=== PATIENT | male | born 1970 | race Two or more races ===

== ENCOUNTER 2020-06-13 22:20 | Emergency (ER) | payer OTHER ==
[2020-06-13 22:39] VITALS: BMI 25.0
[2020-06-14] MEDS ORDERED: ACETAMINOPHEN 325 MG TABLET (FP) PO ONE ×2 (00:47→06:12)
[2020-06-14] MEDS ORDERED: chlordiazePOXIDE HCL 25 MG CAPSULE PO ONE (06:12)
[2020-06-14] MEDS ORDERED: ACETAMINOPHEN 325 MG TABLET (FP) ONE (06:16)
[2020-06-14] MEDS ORDERED: chlordiazePOXIDE HCL 25 MG CAPSULE ONE (06:17)
[2020-06-14 07:08] VITALS: BP 114/68; PULSE 95; TEMP 98.3
== END 2020-06-14 08:24 | disposition home or self-care (01) ==
LOC: JER 22:20
DX: F10.10 Alcohol abuse, uncomplicated (principal); S62.92XA Unspecified fracture of left hand, initial encounter for closed fracture
CPT/HCPCS: 73130-TC-LT-FY; 99284-25

== ENCOUNTER 2020-06-14 10:01 | Inpatient (IN) | payer OTHER ==
[2020-06-14 10:49] VITALS: BMI 22.9
[2020-06-14] MEDS ORDERED: chlordiazePOXIDE HCL 25 MG CAPSULE PO SCH (11:00)
[2020-06-14] MEDS ORDERED: chlordiazePOXIDE HCL 25 MG CAPSULE ONE (11:22)
[2020-06-14] MEDS ORDERED: ONDANSETRON *ODT* 4 MG TABLET SL PRN (11:36)
[2020-06-14] MEDS ORDERED: MAGNESIUM CITRATE 300 ML BOTTLE PO PRN (11:36)
[2020-06-14] MEDS ORDERED: MAG HYDROX/AL HYDROX/SIMETH 30 ML UNIT-DOSE CUP PO PRN (11:36)
[2020-06-14] MEDS ORDERED: NICOTINE POLACRILEX 2 MG GUM BUC PRN (11:36)
[2020-06-14] MEDS ORDERED: MAGNESIUM HYDROX 2400MG/30ML ORAL SUSPENSION 30 ML CUP PO PRN (11:36)
[2020-06-14] MEDS ORDERED: ACETAMINOPHEN 325 MG TABLET (FP) PO PRN (11:36)
[2020-06-14] MEDS ORDERED: MENTHOL/PHENOL 1 EACH UD MM PRN (11:36)
[2020-06-14] MEDS ORDERED: chlordiazePOXIDE HCL 25 MG CAPSULE PO PRN (11:36)
[2020-06-14] MEDS ORDERED: BISMUTH SUBSALICYLATE 262 MG/15 ML BTL PO PRN (11:36)
[2020-06-14] MEDS ORDERED: ALBUTEROL SO4 HFA INHALER IH PRN (11:38)
[2020-06-14] MEDS ORDERED: METHADONE HCL 10 MG TABLET PO SCH (13:00)
[2020-06-14] MEDS: IBUPROFEN 400 MG TABLET (FP) PO PRN ×2 (13:33→19:45)
[2020-06-14] MEDS: PRENATAL VITAMINS W/ FOLIC ACID TABLET (FP) PO SCH (13:33)
[2020-06-14] MEDS: METHADONE HCL 40 MG DISPERSABLE TABLET PO SCH (13:33)
[2020-06-14] MEDS: hydrOXYzine PAMOATE 25 MG CAPSULE (FP) PO SCH ×3 (13:33→23:49)
[2020-06-14] MEDS: METHOCARBAMOL 500 MG TABLET PO PRN ×2 (13:33→19:45)
[2020-06-14] MEDS ORDERED: MELATONIN 5 MG TABLETS PO PRN (14:13)
[2020-06-14 14:28] LABS: HEMATOCRIT 38.6 % (35.4-49); HEMOGLOBIN 13.2 GM/dL (11.7-16.9); MCHC 34.2 g/dl (32.0-35.9); MEAN CELL VOLUME 105.1 fl (80-96); MEAN PLT VOLUME 9.5 fl (7.5-11.1); PLATELET COUNT 174 K/MM3 (134-434); RBC 3.67 M/mm3 (4.00-5.60); WHITE BLOOD COUNT 17.2 K/mm3 (4.0-10.0)
[2020-06-14 14:32] LABS: POTASSIUM 3.5 mmol/L (3.5-5.1)
[2020-06-14 14:41] LABS: CALCIUM 8.7 mg/dL (8.5-10.1)
[2020-06-14 14:42] LABS: ALBUMIN 3.7 g/dl (3.4-5.0)
[2020-06-14 14:44] LABS: CREATININE 0.8 mg/dL (0.55-1.3)
[2020-06-14 14:46] LABS: BILIRUBIN,TOTAL 0.7 mg/dL (0.2-1); TOT PROT 8.1 g/dl (6.4-8.2)
[2020-06-14] MEDS: ACETAMINOPHEN 325 MG TABLET (FP) PO PRN (14:48)
[2020-06-14] MEDS ORDERED: LORazepam 1 MG TABLET PO PRN (15:23)
[2020-06-14] MEDS: LORazepam 2 MG TABLET PO SCH ×2 (17:32→23:49)
[2020-06-14] MEDS ORDERED: MELATONIN 5 MG TABLETS PO SCH (22:00)
[2020-06-14] MEDS: THIAMINE HCL 100 MG TABLET (FP) PO SCH (23:49)
[2020-06-15] MEDS: METHADONE HCL 40 MG DISPERSABLE TABLET PO SCH (05:36)
[2020-06-15] MEDS: LORazepam 2 MG TABLET PO SCH ×4 (05:36→23:24)
[2020-06-15] MEDS: hydrOXYzine PAMOATE 25 MG CAPSULE (FP) PO SCH ×5 (05:36→23:24)
[2020-06-15] MEDS: ACETAMINOPHEN 325 MG TABLET (FP) PO PRN (05:38)
[2020-06-15] MEDS: PRENATAL VITAMINS W/ FOLIC ACID TABLET (FP) PO SCH (11:33)
[2020-06-15] MEDS: NICOTINE 7 MG/24 HOURS TOPICAL PATCH TD SCH (11:34)
[2020-06-15 13:04] LABS: HEMATOCRIT 37.6 % (35.4-49); HEMOGLOBIN 12.9 GM/dL (11.7-16.9); MCH 36.2 pg (25.7-33.7); MCHC 34.2 g/dl (32.0-35.9); MEAN PLT VOLUME 10.3 fl (7.5-11.1); PLATELET COUNT 129 K/MM3 (134-434); POTASSIUM 3.9 mmol/L (3.5-5.1); RBC 3.55 M/mm3 (4.00-5.60); RDW 15.2 % (11.9-15.9); WHITE BLOOD COUNT 13.1 K/mm3 (4.0-10.0)
[2020-06-15 13:05] LABS: INR 1.05 (0.83-1.09); PROTHROMBIN TIME (PATIENT) 12.9 SEC (9.7-13.0)
[2020-06-15 13:08] LABS: ALBUMIN 3.6 g/dl (3.4-5.0); BLOOD UREA NITROGEN 28.5 mg/dL (7-18)
[2020-06-15 13:12] LABS: BILIRUBIN,TOTAL 1.6 mg/dL (0.2-1); CREATININE 2.1 mg/dL (0.55-1.3)
[2020-06-15 13:18] LABS: CALCIUM 8.5 mg/dL (8.5-10.1)
[2020-06-15] MEDS: TOLNAFTATE 1% CREAM 15 GM TUBE TP SCH ×2 (15:29→23:24)
[2020-06-15] MEDS: THIAMINE HCL 100 MG TABLET (FP) PO SCH (23:24)
[2020-06-16] MEDS ORDERED: chlordiazePOXIDE HCL 25 MG CAPSULE PO SCH (05:00)
[2020-06-16] MEDS: METHADONE HCL 40 MG DISPERSABLE TABLET PO SCH (05:24)
[2020-06-16] MEDS: LORazepam 1 MG TABLET PO SCH ×4 (05:24→22:21)
[2020-06-16] MEDS: hydrOXYzine PAMOATE 25 MG CAPSULE (FP) PO SCH ×5 (05:24→22:21)
[2020-06-16] MEDS: ACETAMINOPHEN 325 MG TABLET (FP) PO PRN (05:26)
[2020-06-16] MEDS ORDERED: MASKS NR ONE (07:41)
[2020-06-16 09:50] LABS: BASO % 0.8 % (0-2.0); HEMATOCRIT 39.8 % (35.4-49); HEMOGLOBIN 13.2 GM/dL (11.7-16.9); LYMPH % 13.4 % (8-40); MCH 35.2 pg (25.7-33.7); MCHC 33.1 g/dl (32.0-35.9); MEAN CELL VOLUME 106.4 fl (80-96); MEAN PLT VOLUME 10.9 fl (7.5-11.1); NEUT % 70.8 % (42.8-82.8); PLATELET COUNT 122 K/MM3 (134-434); RBC 3.74 M/mm3 (4.00-5.60); RDW 14.9 % (11.9-15.9); WHITE BLOOD COUNT 11.8 K/mm3 (4.0-10.0)
[2020-06-16 09:53] LABS: POTASSIUM 3.6 mmol/L (3.5-5.1)
[2020-06-16 10:00] LABS: INR 1.01 (0.83-1.09); PROTHROMBIN TIME (PATIENT) 12.2 SEC (9.7-13.0)
[2020-06-16 10:12] LABS: BILIRUBIN,TOTAL 0.8 mg/dL (0.2-1)
[2020-06-16] MEDS: NICOTINE 7 MG/24 HOURS TOPICAL PATCH TD SCH (10:14)
[2020-06-16] MEDS: TOLNAFTATE 1% CREAM 15 GM TUBE TP SCH ×2 (10:14→22:21)
[2020-06-16] MEDS: METHOCARBAMOL 500 MG TABLET PO PRN ×2 (10:17→18:01)
[2020-06-16 10:26] LABS: CALCIUM 9.4 mg/dL (8.5-10.1)
[2020-06-16 10:27] LABS: BLOOD UREA NITROGEN 46.8 mg/dL (7-18)
[2020-06-16 10:30] LABS: CREATININE 3.1 mg/dL (0.55-1.3)
[2020-06-16 10:31] LABS: TOT PROT 8.9 g/dl (6.4-8.2)
[2020-06-16] MEDS: PRENATAL VITAMINS W/ FOLIC ACID TABLET (FP) PO SCH (11:08)
[2020-06-16 12:56] LABS: ANISOCYTOSIS 0; MACROCYTOSIS 1+; PLATELET ESTIMATE DECREASED; TARGET CELLS 1+; TEAR DROP CELLS 1+
[2020-06-16] MEDS ORDERED: LACTULOSE 20 GM/30 ML UDC (FOR ORAL USE ONLY) PO ONE (14:30)
[2020-06-16] MEDS: LACTULOSE 20 GM/30 ML UDC (FOR ORAL USE ONLY) PO SCH ×2 (18:02→22:21)
[2020-06-16] MEDS: THIAMINE HCL 100 MG TABLET (FP) PO SCH (22:21)
[2020-06-17] MEDS ORDERED: chlordiazePOXIDE HCL 10 MG CAPSULE PO PRN
[2020-06-17] MEDS ORDERED: LORazepam 0.5 MG TABLET PO PRN
[2020-06-17] MEDS ORDERED: chlordiazePOXIDE HCL 10 MG CAPSULE PO SCH (05:00)
[2020-06-17] MEDS: hydrOXYzine PAMOATE 25 MG CAPSULE (FP) PO SCH ×5 (05:37→23:12)
[2020-06-17] MEDS: LORazepam 0.5 MG TABLET PO SCH ×4 (05:37→23:12)
[2020-06-17] MEDS: METHADONE HCL 40 MG DISPERSABLE TABLET PO SCH (05:38)
[2020-06-17] MEDS: PRENATAL VITAMINS W/ FOLIC ACID TABLET (FP) PO SCH (10:33)
[2020-06-17] MEDS: NICOTINE 7 MG/24 HOURS TOPICAL PATCH TD SCH (10:33)
[2020-06-17] MEDS: TOLNAFTATE 1% CREAM 15 GM TUBE TP SCH ×2 (10:33→23:12)
[2020-06-17] MEDS: LACTULOSE 20 GM/30 ML UDC (FOR ORAL USE ONLY) PO SCH ×4 (10:34→23:12)
[2020-06-17 11:23] LABS: POTASSIUM 3.5 mmol/L (3.5-5.1)
[2020-06-17 11:32] LABS: CALCIUM 9.5 mg/dL (8.5-10.1)
[2020-06-17 11:33] LABS: ALBUMIN 4.3 g/dl (3.4-5.0); BLOOD UREA NITROGEN 62.4 mg/dL (7-18)
[2020-06-17 11:36] LABS: CREATININE 4.7 mg/dL (0.55-1.3)
[2020-06-17 11:37] LABS: TOT PROT 9.3 g/dl (6.4-8.2)
[2020-06-17 11:38] LABS: BILIRUBIN,TOTAL 0.8 mg/dL (0.2-1)
[2020-06-17] MEDS: AMMONIUM LACTATE 12% LOTION 225 GM BOTTLE TP SCH ×2 (13:39→23:12)
[2020-06-17 17:25] VITALS: BP 134/91; PULSE 136; TEMP 99.1
[2020-06-17] MEDS: THIAMINE HCL 100 MG TABLET (FP) PO SCH (23:12)
[2020-06-18] MEDS ORDERED: chlordiazePOXIDE HCL 10 MG CAPSULE PO SCH (05:00)
[2020-06-18] MEDS ORDERED: LORazepam 0.5 MG TABLET PO ONE (05:00)
[2020-06-19] MEDS ORDERED: chlordiazePOXIDE HCL 10 MG CAPSULE PO ONE (05:00)
== END 2020-06-17 18:04 | disposition short-term general hospital (02) | DRG 773 ==
LOC: YASAS 10:01 → Y6N 12:08
PROVIDERS: ADMIT Allergy & Immunology; ATTEND Allergy & Immunology
PROC: HZ2ZZZZ Detoxification Services for Substance Abuse Treatment (ICD-10-PCS; principal; 2020-06-14)
DX: F10.230 Alcohol dependence with withdrawal, uncomplicated (principal); F11.20 Opioid dependence, uncomplicated; F17.210 Nicotine dependence, cigarettes, uncomplicated; F10.280 Alcohol dependence with alcohol-induced anxiety disorder; F10.282 Alcohol dependence with alcohol-induced sleep disorder; F10.24 Alcohol dependence with alcohol-induced mood disorder; F41.9 Anxiety disorder, unspecified; E72.20 Disorder of urea cycle metabolism, unspecified; J45.909 Unspecified asthma, uncomplicated; R74.8 Abnormal levels of other serum enzymes; R79.89 Other specified abnormal findings of blood chemistry; Z62.810 Personal history of physical and sexual abuse in childhood; Z87.81 Personal history of (healed) traumatic fracture
CPT/HCPCS: 36415; 80053; 82140; 85025; 85027; 85610; 86780; 93005; 93010; C9803; U0003

== ENCOUNTER 2020-06-17 18:14 | Inpatient (IN) | payer OTHER ==
[2020-06-17 18:25] VITALS: BMI 24.4
[2020-06-17] MEDS ORDERED: SODIUM CHLORIDE 0.9% 500 ML INFUS.BAG IV ONE ×3 (19:19→22:10)
[2020-06-17] MEDS ORDERED: LACTULOSE 20 GM/30 ML UDC (FOR ORAL USE ONLY) PO ONE (19:27)
[2020-06-17] MEDS ORDERED: THIAMINE HCL 100 MG TABLET (FP) PO ONE (19:38)
[2020-06-17] MEDS ORDERED: FOLIC ACID 1 MG TABLET (FP) PO ONE (20:07)
[2020-06-17] MEDS ORDERED: THIAMINE HCL 100 MG TABLET (FP) ONE (20:17)
[2020-06-17] MEDS ORDERED: FOLIC ACID 1 MG TABLET (FP) ONE (20:17)
[2020-06-17] MEDS ORDERED: LACTULOSE 20 GM/30 ML UDC (FOR ORAL USE ONLY) ONE (20:17)
[2020-06-17 20:26] LABS: BASO % 0.5 % (0-2.0); EOS % 1.1 % (0-4.5); HEMATOCRIT 38.5 % (35.4-49); HEMOGLOBIN 13.2 GM/dL (11.7-16.9); LYMPH % 8.2 % (8-40); MCH 35.9 pg (25.7-33.7); MCHC 34.3 g/dl (32.0-35.9); MEAN CELL VOLUME 104.7 fl (80-96); MEAN PLT VOLUME 9.7 fl (7.5-11.1); MONO % 14.3 % (3.8-10.2); NEUT % 75.9 % (42.8-82.8); PLATELET COUNT 154 K/MM3 (134-434); RBC 3.68 M/mm3 (4.00-5.60); RDW 14.4 % (11.9-15.9); WHITE BLOOD COUNT 11.8 K/mm3 (4.0-10.0)
[2020-06-17 20:33] LABS: INR 0.99 (0.83-1.09); PROTHROMBIN TIME (PATIENT) 12.2 SEC (9.7-13.0)
[2020-06-17 20:36] LABS: ACTIVATED PTT 27.2 SECONDS (25.2-36.5)
[2020-06-17 20:59] LABS: CHLORIDE 99 mmol/L (98-107); POTASSIUM 3.3 mmol/L (3.5-5.1); SODIUM 132 mmol/L (136-145)
[2020-06-17 21:01] LABS: BLOOD UREA NITROGEN 66.2 mg/dL (7-18); CALCIUM 9.3 mg/dL (8.5-10.1)
[2020-06-17 21:02] LABS: ALBUMIN 4.3 g/dl (3.4-5.0); ANION GAP 12 MMOL/L (8-16); CO2 21 mmol/L (21-32); GLUCOSE,RANDOM 75 mg/dL (74-106); LIPASE 63 U/L (73-393); MAGNESIUM 2.1 mg/dL (1.8-2.4)
[2020-06-17 21:04] LABS: CREATININE 4.5 mg/dL (0.55-1.3); SGOT/AST 163 U/L (15-37); SGPT/ALT 84 U/L (13-61)
[2020-06-17 21:05] LABS: PHOSPHOROUS 6.1 mg/dL (2.5-4.9)
[2020-06-17 21:06] LABS: BILIRUBIN,TOTAL 0.7 mg/dL (0.2-1); TOT PROT 9.4 g/dl (6.4-8.2)
[2020-06-17 21:07] LABS: ALK PHOS 225 U/L (45-117)
[2020-06-17] MEDS ORDERED: POTASSIUM CHLORIDE TABS 20 MEQ TABLET.ER (FP) PO ONE ×2 (21:14→21:25)
[2020-06-17] MEDS ORDERED: KCL 10 MEQ IVPB 20 MEQ/200 ML INFUS.BAG IVPB ONE (21:25)
[2020-06-17 21:56] LABS: HIV INTERPRETATION NEGATIVE (NEGATIVE)
[2020-06-17] MEDS ORDERED: LORazepam 2 MG/ML SDV VIAL ONE (22:02)
[2020-06-17] MEDS: KCL 10 MEQ IVPB 10 MEQ/100 ML INFUS.BAG IVPB SCH ×2 (22:11→23:11)
[2020-06-17] MEDS ORDERED: LORazepam 2 MG/ML SDV VIAL IVPUSH ONE (22:11)
[2020-06-17] MEDS ORDERED: FOLIC ACID INJECTION - 1 MG, THIAMINE HCL 100 MG, MULTIVIT INJECTION ADULT 10 ML in SOD... IVPB ONE (22:30)
[2020-06-17 22:38] LABS: EPI CELLS 16 /uL (0-25.1); HYALINE CASTS 13 /uL (0-3.1); URINE APPEARANCE CLOUDY; URINE BACTERIA 3 /uL (0-1359); URINE BILIRUBIN NEGATIVE (NEGATIVE); URINE COLOR YELLOW; URINE GLUCOSE (UA) NEGATIVE (NEGATIVE); URINE KETONE TRACE (NEGATIVE); URINE LEUK ESTERASE NEGATIVE (NEGATIVE); URINE NITRITE NEGATIVE (NEGATIVE); URINE PROTEIN 2+ (NEGATIVE); URINE RBC 16 /uL (0-23.9); URINE UROBILINOGEN 0.2 mg/dL (0.2-1.0); URINE WBC 8 /uL (0-25.8)
[2020-06-17] MEDS ORDERED: CEFTRIAXONE 1,000 MG in DEXTROSE 5%-WATER - 50 ML IVPB ONE (22:53)
[2020-06-17] MEDS ORDERED: VANCOMYCIN 1 GM in D5W (PRE-DOCKED) 1,000 MG/250 ML IVPB ONE (22:53)
[2020-06-17 23:32] LABS: YEAST NEGATIVE (NEGATIVE)
[2020-06-17] MEDS ORDERED: VANCOMYCIN 1 GRAM (PRE-DOCKED) 1,000 MG/250 ML BAG IVPB ONE (23:43)
[2020-06-17] MEDS ORDERED: CEFTRIAXONE 1 GM/50 ML BAG ONE (23:47)
[2020-06-18] MEDS ORDERED: LORazepam 1 MG TABLET PO PRN (00:06)
[2020-06-18] MEDS ORDERED: THIAMINE HCL 200 MG/2 ML VIAL IVPB ONE (00:11)
[2020-06-18] MEDS ORDERED: SODIUM CHLORIDE 0.9%/KCL 20 MEQ/1,000 ML INFUS.BAG IV SCH (00:15)
[2020-06-18] MEDS: cloNIDine HCL 0.1 MG TABLET PO SCH ×2 (03:30→13:00)
[2020-06-18] MEDS ORDERED: cloNIDine HCL 0.1 MG TABLET ONE (03:38)
[2020-06-18] MEDS ORDERED: LACTULOSE 20 GM/30 ML UDC (FOR ORAL USE ONLY) ONE ×2 (04:11→05:20)
[2020-06-18] MEDS: LACTULOSE 20 GM/30 ML UDC (FOR ORAL USE ONLY) PO SCH ×4 (04:15→17:20)
[2020-06-18] MEDS ORDERED: LORazepam 1 MG TABLET ONE (05:21)
[2020-06-18] MEDS ORDERED: HEPARIN NA (PORCINE) 5,000 UNITS/ML 1ML VIAL ONE (05:21)
[2020-06-18] MEDS: LORazepam 1 MG TABLET PO SCH ×3 (05:27→16:46)
[2020-06-18] MEDS: HEPARIN NA (PORCINE) 5,000 UNITS/ML 1ML VIAL SQ SCH ×2 (06:22→13:03)
[2020-06-18 07:59] LABS: BASO % 0.6 % (0-2.0); HEMATOCRIT 30.7 % (35.4-49); HEMOGLOBIN 10.5 GM/dL (11.7-16.9); LYMPH % 14.5 % (8-40); MCHC 34.1 g/dl (32.0-35.9); MEAN CELL VOLUME 105.8 fl (80-96); MEAN PLT VOLUME 9.1 fl (7.5-11.1); MONO % 15.9 % (3.8-10.2); PLATELET COUNT 127 K/MM3 (134-434); RBC 2.91 M/mm3 (4.00-5.60); WHITE BLOOD COUNT 7.3 K/mm3 (4.0-10.0)
[2020-06-18] MEDS: IPRATROPIUM BR 0.02% 0.5 MG/2.5 ML VIAL.NEB. NEB SCH ×3 (08:05→17:01)
[2020-06-18 08:13] LABS: CHLORIDE 112 mmol/L (98-107); POTASSIUM 3.3 mmol/L (3.5-5.1); SODIUM 140 mmol/L (136-145)
[2020-06-18 08:20] LABS: ANION GAP 9 MMOL/L (8-16); BLOOD UREA NITROGEN 48.5 mg/dL (7-18); CO2 19 mmol/L (21-32); GLUCOSE,RANDOM 69 mg/dL (74-106); MAGNESIUM 1.8 mg/dL (1.8-2.4)
[2020-06-18 08:23] LABS: CREATININE 2.3 mg/dL (0.55-1.3); SGOT/AST 180 U/L (15-37); SGPT/ALT 65 U/L (13-61)
[2020-06-18 08:24] LABS: BILIRUBIN,TOTAL 0.5 mg/dL (0.2-1)
[2020-06-18 09:17] LABS: ALBUMIN 2.9 g/dl (3.4-5.0); ALK PHOS 152 U/L (45-117); CALCIUM 7.9 mg/dL (8.5-10.1); TOT PROT 6.5 g/dl (6.4-8.2)
[2020-06-18] MEDS ORDERED: CEFTRIAXONE 1 GM in DEXTROSE 5%-WATER - 50 ML IVPB SCH (10:00)
[2020-06-18] MEDS ORDERED: THIAMINE HCL 200 MG/2 ML VIAL IVPB SCH (10:00)
[2020-06-18] MEDS ORDERED: RIFAXIMIN 550 MG TABLET (UD) PO SCH (10:00)
[2020-06-18] MEDS ORDERED: FOLIC ACID 1 MG TABLET (FP) PO SCH (10:00)
[2020-06-18] MEDS ORDERED: POTASSIUM CHLORIDE TABS 20 MEQ TABLET.ER (FP) PO ONE (12:00)
[2020-06-18 17:19] VITALS: BP 103/55; PULSE 96; TEMP 97.9
[2020-06-18] MEDS ORDERED: MONTELUKAST NA 5 MG TAB.CHEW PO SCH (22:00)
[2020-06-19] MEDS ORDERED: LORazepam 1 MG TABLET PO SCH (05:00)
[2020-06-19 16:08] LABS: HEP B CORE AB, TOT Negative (Negative)
[2020-06-20] MEDS ORDERED: LORazepam 0.5 MG TABLET PO PRN
[2020-06-20] MEDS ORDERED: LORazepam 0.5 MG TABLET PO SCH (05:00)
[2020-06-21] MEDS ORDERED: LORazepam 0.5 MG TABLET PO ONE (05:00)
== END 2020-06-18 18:45 | disposition left against medical advice (07) | DRG 469 ==
LOC: JER 18:14 → JERBED 22:15 → J4S 06-18 05:33 → J6WEST-2 06-18 08:33
PROVIDERS: ADMIT Internal Medicine; ATTEND Nurse Practitioner Family
DX: N17.9 Acute kidney failure, unspecified (principal); F11.20 Opioid dependence, uncomplicated; M62.82 Rhabdomyolysis; J45.909 Unspecified asthma, uncomplicated; F10.230 Alcohol dependence with withdrawal, uncomplicated; F41.9 Anxiety disorder, unspecified; K72.90 Hepatic failure, unspecified without coma; K70.10 Alcoholic hepatitis without ascites; K76.0 Fatty (change of) liver, not elsewhere classified; Z20.822 Contact with and (suspected) exposure to COVID-19; I10 Essential (primary) hypertension; E86.9 Volume depletion, unspecified; K52.9 Noninfective gastroenteritis and colitis, unspecified
CPT/HCPCS: 36415; 70450-TC; 71250-TC; 72125-TC; 74176-TC; 76705-TC; 76775-TC; 80053; 80074; 81003; 82140; 82550; 82553; 82962; 83605; 83690; 83735; 84100; 84443; 84484; 85025; 85610; 85730; 86704; 86706; 86707; 86708; 86709; 87040; 87077; 87086; 87186; 87340; 87389; 93005; 93010; 99285-25; C9803; J0735; J1644; U0003

== ENCOUNTER 2020-09-05 17:20 | Emergency (ER) | payer OTHER ==
[2020-09-05 19:56] VITALS: BMI 25.7
[2020-09-06 05:18] LABS: BASO % 1.8 % (0-2.0); EOS % 0.4 % (0-4.5); HEMATOCRIT 40.8 % (35.4-49); HEMOGLOBIN 13.9 GM/dL (11.7-16.9); LYMPH % 35.6 % (8-40); MCH 36.1 pg (25.7-33.7); MCHC 34.1 g/dl (32.0-35.9); MEAN CELL VOLUME 105.9 fl (80-96); MONO % 4.8 % (3.8-10.2); NEUT % 57.4 % (42.8-82.8); RBC 3.85 M/mm3 (4.00-5.60); RDW 15.5 % (11.9-15.9); WHITE BLOOD COUNT 9.8 K/mm3 (4.0-10.0)
[2020-09-06] MEDS ORDERED: SODIUM CHLORIDE 1,000 ML IV STA (05:18)
[2020-09-06] MEDS ORDERED: LORazepam 2 MG/ML SDV VIAL IVPUSH STA (05:18)
[2020-09-06 05:36] LABS: CALCIUM 8.5 mg/dL (8.5-10.1)
[2020-09-06 05:37] LABS: ALBUMIN 3.6 g/dl (3.4-5.0); BLOOD UREA NITROGEN 14.1 mg/dL (7-18)
[2020-09-06 05:42] LABS: BILIRUBIN,TOTAL 0.2 mg/dL (0.2-1); TOT PROT 8.3 g/dl (6.4-8.2)
[2020-09-06] MEDS ORDERED: LORazepam 2 MG/ML SDV VIAL ONE (05:43)
[2020-09-06] MEDS ORDERED: FOLIC ACID INJECTION - 1 MG, THIAMINE HCL 100 MG, MULTIVIT INJECTION ADULT 10 ML in SOD... IVPB ONE (05:44)
[2020-09-06 05:46] LABS: CREATININE 0.7 mg/dL (0.55-1.3)
[2020-09-06 06:15] VITALS: BP 138/93; PULSE 112; TEMP 99
[2020-09-06 07:08] LABS: MEAN PLT VOLUME 8.4 fl (7.5-11.1); PLATELET COUNT 504 K/MM3 (134-434)
== END 2020-09-06 06:59 | disposition short-term general hospital (02) ==
LOC: JER 17:20
PROC: 3E033GC Introduction of Other Therapeutic Substance into Peripheral Vein, Percutaneous Approach (ICD-10-PCS; principal; 2020-09-05)
PROC: 3E033NZ Introduction of Analgesics, Hypnotics, Sedatives into Peripheral Vein, Percutaneous Approach (ICD-10-PCS; 2020-09-05)
PROC: 3E0337Z Introduction of Electrolytic and Water Balance Substance into Peripheral Vein, Percutaneous Approach (ICD-10-PCS; 2020-09-05)
DX: F10.10 Alcohol abuse, uncomplicated (principal); F10.920 Alcohol use, unspecified with intoxication, uncomplicated; F10.232 Alcohol dependence with withdrawal with perceptual disturbance
CPT/HCPCS: 36415; 70450-TC; 71045-TC-FY; 80053; 80307; 85025; 93005; 93010; 99285-25; C9803; U0003; U0005

== ENCOUNTER 2020-09-06 08:14 | Inpatient (IN) | payer OTHER ==
[2020-09-06 09:42] VITALS: BMI 21.9
[2020-09-06] MEDS ORDERED: MAG HYDROX/AL HYDROX/SIMETH 30 ML UNIT-DOSE CUP PO PRN (10:09)
[2020-09-06] MEDS ORDERED: MAGNESIUM HYDROX 2400MG/30ML ORAL SUSPENSION 30 ML CUP PO PRN (10:09)
[2020-09-06] MEDS ORDERED: NICOTINE POLACRILEX 2 MG GUM BUC PRN (10:09)
[2020-09-06] MEDS ORDERED: MENTHOL/PHENOL 1 EACH UD MM PRN (10:09)
[2020-09-06] MEDS ORDERED: MAGNESIUM CITRATE 300 ML BOTTLE PO PRN (10:09)
[2020-09-06] MEDS ORDERED: ONDANSETRON *ODT* 4 MG TABLET SL PRN (10:09)
[2020-09-06] MEDS ORDERED: BISMUTH SUBSALICYLATE 524 MG/30 ML PO PRN (10:09)
[2020-09-06] MEDS ORDERED: ACETAMINOPHEN 325 MG TABLET (FP) PO PRN ×2 (10:09)
[2020-09-06] MEDS ORDERED: LORazepam 2 MG TABLET ONE (11:21)
[2020-09-06] MEDS: LORazepam 2 MG TABLET PO SCH ×3 (11:23→22:28)
[2020-09-06] MEDS ORDERED: METHADONE HCL 10 MG TABLET PO SCH (11:45)
[2020-09-06] MEDS ORDERED: METHADONE HCL 40 MG DISPERSABLE TABLET ONE (12:53)
[2020-09-06] MEDS ORDERED: METHADONE HCL 10 MG TABLET ONE (12:53)
[2020-09-06] MEDS: METHADONE 80 MG, METHADONE 10 MG PO SCH (12:56)
[2020-09-06] MEDS: PRENATAL VITAMINS W/ FOLIC ACID TABLET (FP) PO SCH (12:57)
[2020-09-06] MEDS: hydrOXYzine PAMOATE 25 MG CAPSULE (FP) PO SCH ×3 (13:00→22:27)
[2020-09-06] MEDS ORDERED: ALBUTEROL SO4 HFA INHALER IH PRN (13:18)
[2020-09-06] MEDS: LORazepam 1 MG TABLET PO PRN ×2 (14:13→20:14)
[2020-09-06] MEDS: IBUPROFEN 400 MG TABLET (FP) PO PRN (17:14)
[2020-09-06] MEDS ORDERED: MELATONIN 5 MG TABLETS PO SCH (22:00)
[2020-09-06] MEDS: THIAMINE HCL 100 MG TABLET (FP) PO SCH (22:27)
[2020-09-07] MEDS ORDERED: METHADONE HCL 40 MG DISPERSABLE TABLET ONE (04:11)
[2020-09-07] MEDS ORDERED: METHADONE HCL 10 MG TABLET ONE (04:11)
[2020-09-07] MEDS: hydrOXYzine PAMOATE 25 MG CAPSULE (FP) PO SCH ×3 (05:21→15:00)
[2020-09-07] MEDS: LORazepam 2 MG TABLET PO SCH ×4 (05:22→22:40)
[2020-09-07] MEDS: METHADONE 80 MG, METHADONE 10 MG PO SCH (05:22)
[2020-09-07] MEDS: METHOCARBAMOL 500 MG TABLET PO PRN ×2 (05:28→22:43)
[2020-09-07] MEDS: PRENATAL VITAMINS W/ FOLIC ACID TABLET (FP) PO SCH (10:36)
[2020-09-07] MEDS: NICOTINE 7 MG/24 HOURS TOPICAL PATCH TD SCH (10:45)
[2020-09-07] MEDS: hydrOXYzine PAMOATE 25 MG CAPSULE (FP) PO PRN ×2 (17:25→22:43)
[2020-09-07] MEDS: IBUPROFEN 400 MG TABLET (FP) PO PRN (17:27)
[2020-09-07] MEDS: MELATONIN 5 MG TABLETS PO PRN (22:41)
[2020-09-07] MEDS: THIAMINE HCL 100 MG TABLET (FP) PO SCH (22:41)
[2020-09-08] MEDS ORDERED: METHADONE HCL 10 MG TABLET ONE (05:16)
[2020-09-08] MEDS ORDERED: METHADONE HCL 40 MG DISPERSABLE TABLET ONE (05:16)
[2020-09-08] MEDS: METHADONE 80 MG, METHADONE 10 MG PO SCH (05:50)
[2020-09-08] MEDS: LORazepam 1 MG TABLET PO SCH ×4 (05:52→22:18)
[2020-09-08] MEDS ORDERED: LACTULOSE 20 GM/30 ML UDC (FOR ORAL USE ONLY) PO ONE (10:15)
[2020-09-08] MEDS: PRENATAL VITAMINS W/ FOLIC ACID TABLET (FP) PO SCH (10:19)
[2020-09-08] MEDS: NICOTINE 7 MG/24 HOURS TOPICAL PATCH TD SCH (10:19)
[2020-09-08] MEDS: METHOCARBAMOL 500 MG TABLET PO PRN ×2 (10:20→18:11)
[2020-09-08] MEDS: LACTULOSE 20 GM/30 ML UDC (FOR ORAL USE ONLY) PO SCH ×3 (14:28→22:44)
[2020-09-08] MEDS: IBUPROFEN 400 MG TABLET (FP) PO PRN ×2 (14:32→22:19)
[2020-09-08] MEDS: LORazepam 1 MG TABLET PO PRN (14:33)
[2020-09-08] MEDS: hydrOXYzine PAMOATE 25 MG CAPSULE (FP) PO PRN ×2 (18:11→22:18)
[2020-09-08] MEDS: THIAMINE HCL 100 MG TABLET (FP) PO SCH (22:18)
[2020-09-08] MEDS: MELATONIN 5 MG TABLETS PO PRN (22:18)
[2020-09-09] MEDS ORDERED: LORazepam 0.5 MG TABLET PO PRN
[2020-09-09] MEDS ORDERED: METHADONE HCL 40 MG DISPERSABLE TABLET ONE (04:08)
[2020-09-09] MEDS ORDERED: METHADONE HCL 10 MG TABLET ONE (04:08)
[2020-09-09] MEDS: METHADONE 80 MG, METHADONE 10 MG PO SCH (05:44)
[2020-09-09] MEDS: LORazepam 0.5 MG TABLET PO SCH ×4 (05:45→22:04)
[2020-09-09] MEDS: hydrOXYzine PAMOATE 25 MG CAPSULE (FP) PO PRN ×3 (05:48→22:06)
[2020-09-09] MEDS: IBUPROFEN 400 MG TABLET (FP) PO PRN ×2 (05:49→14:26)
[2020-09-09] MEDS: PRENATAL VITAMINS W/ FOLIC ACID TABLET (FP) PO SCH (10:13)
[2020-09-09] MEDS: NICOTINE 7 MG/24 HOURS TOPICAL PATCH TD SCH (10:13)
[2020-09-09] MEDS: LACTULOSE 20 GM/30 ML UDC (FOR ORAL USE ONLY) PO SCH ×4 (10:18→22:06)
[2020-09-09] MEDS: METHOCARBAMOL 500 MG TABLET PO PRN ×2 (14:26→22:04)
[2020-09-09 15:08] LABS: SARS-CoV-2 NAA Not Detected (Not Detected)
[2020-09-09] MEDS: THIAMINE HCL 100 MG TABLET (FP) PO SCH (22:04)
[2020-09-10] MEDS ORDERED: METHADONE HCL 10 MG TABLET ONE (04:11)
[2020-09-10] MEDS ORDERED: METHADONE HCL 40 MG DISPERSABLE TABLET ONE (04:11)
[2020-09-10] MEDS ORDERED: LORazepam 0.5 MG TABLET PO ONE (05:00)
[2020-09-10] MEDS: METHADONE 80 MG, METHADONE 10 MG PO SCH (06:23)
[2020-09-10] MEDS: LORazepam 0.5 MG TABLET PO SCH ×2 (09:54→22:20)
[2020-09-10] MEDS: LACTULOSE 20 GM/30 ML UDC (FOR ORAL USE ONLY) PO SCH ×4 (09:54→22:22)
[2020-09-10] MEDS: PRENATAL VITAMINS W/ FOLIC ACID TABLET (FP) PO SCH (09:54)
[2020-09-10] MEDS: NICOTINE 7 MG/24 HOURS TOPICAL PATCH TD SCH (09:55)
[2020-09-10] MEDS: hydrOXYzine PAMOATE 25 MG CAPSULE (FP) PO PRN (22:20)
[2020-09-10] MEDS: THIAMINE HCL 100 MG TABLET (FP) PO SCH (22:20)
[2020-09-10] MEDS: MELATONIN 5 MG TABLETS PO PRN (22:20)
[2020-09-11] MEDS ORDERED: METHADONE HCL 40 MG DISPERSABLE TABLET ONE (04:31)
[2020-09-11] MEDS ORDERED: METHADONE HCL 10 MG TABLET ONE (04:31)
[2020-09-11] MEDS ORDERED: LORazepam 2 MG TABLET PO ONE (05:00)
[2020-09-11] MEDS ORDERED: LORazepam 0.5 MG TABLET PO ONE (05:00)
[2020-09-11] MEDS: METHADONE 80 MG, METHADONE 10 MG PO SCH (05:34)
[2020-09-11] MEDS: hydrOXYzine PAMOATE 25 MG CAPSULE (FP) PO PRN ×2 (05:36→10:16)
[2020-09-11] MEDS: METHOCARBAMOL 500 MG TABLET PO PRN (05:37)
[2020-09-11 09:35] VITALS: BP 108/75; PULSE 105; TEMP 97.3
[2020-09-11] MEDS: PRENATAL VITAMINS W/ FOLIC ACID TABLET (FP) PO SCH (10:13)
[2020-09-11] MEDS: NICOTINE 7 MG/24 HOURS TOPICAL PATCH TD SCH (10:15)
[2020-09-11] MEDS: LACTULOSE 20 GM/30 ML UDC (FOR ORAL USE ONLY) PO SCH (10:15)
[2020-09-11] MEDS: LORazepam 0.5 MG TABLET PO SCH (10:17)
[2020-09-11] MEDS: IBUPROFEN 400 MG TABLET (FP) PO PRN (10:18)
== END 2020-09-11 11:18 | disposition home or self-care (01) | DRG 773 ==
LOC: YASAS 08:14 → Y6N 10:00 → Y3N 11:08
PROVIDERS: ADMIT Allergy & Immunology; ATTEND Allergy & Immunology
PROC: HZ2ZZZZ Detoxification Services for Substance Abuse Treatment (ICD-10-PCS; principal; 2020-09-06)
DX: F10.230 Alcohol dependence with withdrawal, uncomplicated (principal); F11.20 Opioid dependence, uncomplicated; F17.210 Nicotine dependence, cigarettes, uncomplicated; F10.282 Alcohol dependence with alcohol-induced sleep disorder; F10.280 Alcohol dependence with alcohol-induced anxiety disorder; F10.24 Alcohol dependence with alcohol-induced mood disorder; E72.20 Disorder of urea cycle metabolism, unspecified; J45.909 Unspecified asthma, uncomplicated; G40.89 Other seizures; Z62.810 Personal history of physical and sexual abuse in childhood; Z87.81 Personal history of (healed) traumatic fracture; Z98.890 Other specified postprocedural states
CPT/HCPCS: 36415; 82140; 86780; C9803; U0003; U0005

== ENCOUNTER 2022-11-13 13:23 | Inpatient (IN) | payer OTHER ==
[2022-11-13 14:52] VITALS: BMI 20.6
[2022-11-13] MEDS ORDERED: BENZONATATE 200 MG CAPSULE PO PRN (18:10)
[2022-11-13] MEDS ORDERED: NALOXONE HCL (KLOXXADO) 8 MG SPRAY NS PRN (18:10)
[2022-11-13] MEDS ORDERED: POLYETHYLENE GLYCOL (HEALTHYLAX) 3350 17 GM PACKET PO PRN (18:10)
[2022-11-13] MEDS ORDERED: ACETAMINOPHEN 325 MG TABLET (FP) PO PRN (18:10)
[2022-11-13] MEDS ORDERED: MAGNESIUM HYDROX 2400MG/30ML ORAL SUSPENSION 30 ML CUP PO PRN (18:10)
[2022-11-13] MEDS ORDERED: NALOXONE HCL 0.4 MG/ML VIAL IM PRN (18:10)
[2022-11-13] MEDS ORDERED: BENZOCAINE/MENTHOL (CHLORASEPTIC ) LOZENGE MM PRN (18:10)
[2022-11-13] MEDS ORDERED: guaiFENesin 600 MG TABLET.ER (FP) PO PRN (18:10)
[2022-11-13] MEDS ORDERED: BISMUTH SUBSALICYLATE 524 MG/30 ML PO PRN (18:10)
[2022-11-13] MEDS ORDERED: ONDANSETRON *ODT* 4 MG TABLET SL PRN (18:10)
[2022-11-13] MEDS ORDERED: LOPERAMIDE HCL 2 MG CAPSULE PO PRN (18:10)
[2022-11-13] MEDS ORDERED: IBUPROFEN 600 MG TABLET (FP) PO PRN (18:10)
[2022-11-13] MEDS ORDERED: MAG HYDROX/AL HYDROX/SIMETH 30 ML UNIT-DOSE CUP PO PRN (18:10)
[2022-11-13] MEDS ORDERED: NICOTINE POLACRILEX 2 MG GUM BUC PRN (18:10)
[2022-11-13] MEDS ORDERED: IBUPROFEN 400 MG TABLET (FP) PO PRN (18:10)
[2022-11-13] MEDS ORDERED: ALBUTEROL SO4 HFA INHALER IH PRN (18:21)
[2022-11-13] MEDS: hydrOXYzine PAMOATE 25 MG CAPSULE (FP) PO PRN (20:04)
[2022-11-13] MEDS: LORazepam 2 MG TABLET PO SCH (22:18)
[2022-11-13] MEDS: MELATONIN 5 MG TABLETS PO SCH (22:18)
[2022-11-13] MEDS: THIAMINE HCL 100 MG TABLET (FP) PO SCH (22:18)
[2022-11-14] MEDS: LORazepam 2 MG TABLET PO SCH ×4 (06:00→22:09)
[2022-11-14] MEDS ORDERED: methaDONE HCL 10 MG TABLET PO ONE (08:45)
[2022-11-14] MEDS ORDERED: methaDONE 40 MG, methaDONE 10 MG PO ONE (09:15)
[2022-11-14] MEDS: PRENATAL VITAMINS W/ FOLIC ACID TABLET (FP) PO SCH (10:09)
[2022-11-14] MEDS: NICOTINE 14 MG/24 HOURS TOPICAL PATCH TD SCH (10:09)
[2022-11-14 11:30] LABS: POTASSIUM 3.9 mmol/L (3.5-5.1)
[2022-11-14 11:32] LABS: ALBUMIN 3.5 g/dl (3.4-5.0); BLOOD UREA NITROGEN 12.8 mg/dL (7-18); CALCIUM 8.8 mg/dL (8.5-10.1)
[2022-11-14 11:36] LABS: CREATININE 0.7 mg/dL (0.55-1.3); HEMATOCRIT 37.2 % (35.4-49); HEMOGLOBIN 12.3 GM/dL (11.7-16.9); MCH 32.4 pg (25.7-33.7); MCHC 33.1 g/dl (32.0-35.9); MEAN CELL VOLUME 97.9 fl (80-96); MEAN PLT VOLUME 9.3 fl (7.5-11.1); PLATELET COUNT 156 10^3/uL (134-434); RDW 14.2 % (11.9-15.9); WHITE BLOOD COUNT 8.1 K/mm3 (4.0-10.0)
[2022-11-14 11:37] LABS: BILIRUBIN,TOTAL 1.1 mg/dL (0.2-1); TOT PROT 7.9 g/dl (6.4-8.2)
[2022-11-14] MEDS: LORazepam 1 MG TABLET PO PRN (14:07)
[2022-11-14] MEDS ORDERED: cloNIDine HCL 0.1 MG TABLET PO PRN (18:21)
[2022-11-14] MEDS: HALOPERIDOL 5 MG TABLET PO SCH (22:10)
[2022-11-14] MEDS: THIAMINE HCL 100 MG TABLET (FP) PO SCH (22:10)
[2022-11-14] MEDS: MIRTAZAPINE 15 MG TABLET (FP) PO SCH (22:10)
[2022-11-14] MEDS: MELATONIN 5 MG TABLETS PO SCH (22:10)
[2022-11-14] MEDS: NAPROXEN 500 MG TABLET PO PRN (22:11)
[2022-11-14] MEDS: METHOCARBAMOL 500 MG TABLET PO PRN (22:11)
[2022-11-15] MEDS ORDERED: methaDONE 40 MG, methaDONE 20 MG PO ONE (06:00)
[2022-11-15] MEDS ORDERED: methaDONE HCL 10 MG TABLET PO ONE (06:00)
[2022-11-15] MEDS: LORazepam 1 MG TABLET PO SCH ×4 (06:10→22:14)
[2022-11-15] MEDS: PRENATAL VITAMINS W/ FOLIC ACID TABLET (FP) PO SCH (10:21)
[2022-11-15] MEDS: NICOTINE 14 MG/24 HOURS TOPICAL PATCH TD SCH (10:22)
[2022-11-15] MEDS: FLUoxetine HCL 20 MG CAPSULE PO SCH (10:22)
[2022-11-15] MEDS: METHOCARBAMOL 500 MG TABLET PO PRN (10:40)
[2022-11-15] MEDS: hydrOXYzine PAMOATE 25 MG CAPSULE (FP) PO PRN (10:40)
[2022-11-15] MEDS: LORazepam 1 MG TABLET PO PRN (13:04)
[2022-11-15] MEDS: NAPROXEN 500 MG TABLET PO PRN ×2 (15:29→22:14)
[2022-11-15] MEDS: HALOPERIDOL 5 MG TABLET PO SCH (22:14)
[2022-11-15] MEDS: MIRTAZAPINE 15 MG TABLET (FP) PO SCH (22:14)
[2022-11-15] MEDS: THIAMINE HCL 100 MG TABLET (FP) PO SCH (22:14)
[2022-11-15] MEDS: MELATONIN 5 MG TABLETS PO SCH (22:15)
[2022-11-16] MEDS ORDERED: LORazepam 0.5 MG TABLET PO PRN
[2022-11-16] MEDS: LORazepam 0.5 MG TABLET PO SCH ×4 (05:39→22:11)
[2022-11-16] MEDS: methaDONE 40 MG, methaDONE 30 MG PO SCH (05:40)
[2022-11-16] MEDS ORDERED: methaDONE HCL 10 MG TABLET PO SCH (06:00)
[2022-11-16] MEDS: PRENATAL VITAMINS W/ FOLIC ACID TABLET (FP) PO SCH (10:23)
[2022-11-16] MEDS: NICOTINE 14 MG/24 HOURS TOPICAL PATCH TD SCH (10:23)
[2022-11-16] MEDS: FLUoxetine HCL 20 MG CAPSULE PO SCH (10:23)
[2022-11-16] MEDS: METHOCARBAMOL 500 MG TABLET PO PRN ×2 (10:25→22:11)
[2022-11-16] MEDS: MELATONIN 5 MG TABLETS PO SCH (22:11)
[2022-11-16] MEDS: THIAMINE HCL 100 MG TABLET (FP) PO SCH (22:11)
[2022-11-16] MEDS: MIRTAZAPINE 15 MG TABLET (FP) PO SCH (22:11)
[2022-11-16] MEDS: HALOPERIDOL 5 MG TABLET PO SCH (22:11)
[2022-11-17] MEDS ORDERED: LORazepam 0.5 MG TABLET PO ONE (05:00)
[2022-11-17] MEDS: methaDONE 40 MG, methaDONE 30 MG PO SCH (05:52)
[2022-11-17] MEDS: hydrOXYzine PAMOATE 25 MG CAPSULE (FP) PO PRN ×2 (08:52→16:57)
[2022-11-17] MEDS: NICOTINE 14 MG/24 HOURS TOPICAL PATCH TD SCH (09:26)
[2022-11-17] MEDS: PRENATAL VITAMINS W/ FOLIC ACID TABLET (FP) PO SCH (09:26)
[2022-11-17] MEDS: FLUoxetine HCL 20 MG CAPSULE PO SCH (09:26)
[2022-11-17] MEDS: METHOCARBAMOL 500 MG TABLET PO PRN (16:57)
[2022-11-17] MEDS: NAPROXEN 500 MG TABLET PO PRN (17:39)
[2022-11-17] MEDS: MIRTAZAPINE 15 MG TABLET (FP) PO SCH (21:13)
[2022-11-17] MEDS: HALOPERIDOL 5 MG TABLET PO SCH (21:13)
[2022-11-17] MEDS: MELATONIN 5 MG TABLETS PO SCH (21:13)
[2022-11-17] MEDS: THIAMINE HCL 100 MG TABLET (FP) PO SCH (21:13)
[2022-11-18] MEDS: methaDONE 40 MG, methaDONE 30 MG PO SCH (05:51)
[2022-11-18 06:30] VITALS: BP 136/86; PULSE 80; RESP 17; TEMP 97.6
== END 2022-11-18 09:10 | disposition home or self-care (01) | DRG 773 ==
LOC: YASAS 13:23 → Y3N 19:36
PROVIDERS: ADMIT Allergy & Immunology; ATTEND Psychiatry & Neurology Pain Medicine
PROC: HZ2ZZZZ Detoxification Services for Substance Abuse Treatment (ICD-10-PCS; principal; 2022-11-13)
DX: F10.230 Alcohol dependence with withdrawal, uncomplicated (principal); F11.20 Opioid dependence, uncomplicated; F12.20 Cannabis dependence, uncomplicated; F17.210 Nicotine dependence, cigarettes, uncomplicated; F25.0 Schizoaffective disorder, bipolar type; F31.9 Bipolar disorder, unspecified; F41.9 Anxiety disorder, unspecified; F43.10 Post-traumatic stress disorder, unspecified; F10.282 Alcohol dependence with alcohol-induced sleep disorder; F10.24 Alcohol dependence with alcohol-induced mood disorder; E72.20 Disorder of urea cycle metabolism, unspecified; M41.9 Scoliosis, unspecified; R74.01 Elevation of levels of liver transaminase levels
CPT/HCPCS: 36415; 80053; 85027; 86780; 87635; 93005; 93010; Q0162